=== PATIENT | male | born 2000 | race Caucasian/White ===

== ENCOUNTER 2021-01-31 21:07 | Emergency (ER) | payer OTHER, SELFPAY ==
[2021-01-31 21:21] VITALS: BP 155/82; PULSE 83; RESP 18; TEMP 37.2; O2SAT 98; BMI 29.7
--- NOTE | 2021-01-31 21:56 | ECG_ITS ---
Test Reason : PALPITATIONS Blood Pressure : / mmHG Vent. Rate : 083 BPM Atrial Rate : 083 BPM P-R Int : 114 ms QRS Dur : 102 ms QT Int : 350 ms P-R-T Axes : 068 081 057 degrees QTc Int : 411 ms Normal sinus rhythm Normal ECG No previous ECGs available Referred By: Danyell Ridley Electronically Signed By:Sekou Yarbrough
--- NOTE | 2021-01-31 22:15 | PC.NURSE ---
blood work was obtained and sent to the lab
[2021-01-31 22:16] VITALS: BP 118/68; PULSE 82; RESP 15; O2SAT 98
[2021-01-31 22:52] LABS: D Dimer < 200 NG/ML
--- NOTE | 2021-01-31 22:59 | ED_ITS ---
HPI - Arrhythmia/Palpitations General Chief Complaint: Arrhythmia/Palpitations Stated Complaint: arm tingling Time Seen by Provider: 01/31/21 21:55 Source: patient Mode of arrival: ambulatory History of Present Illness HPI narrative: 21-year-old male without significant past medical history who presents with 2nd episode of palpitations, 1st episode occurred approximately 2 weeks ago, and now this 2nd episode occurred after taking hot shower. These events have not been associated with fevers, chills, shortness of breath, chest pain, lightheadedness/dizziness, nausea, diaphoresis. Patient denies any recent travel, drinks only coffee, has not had COVID-19 vaccines. Patient denies any personal history cardiac problems and is noted to have played sports in high school. Related Data Allergies Allergy/AdvReac Type Severity Reaction Status Date / Time amoxicillin [AMOXICILLIN] Allergy Unknown HIVES, rash Verified 01/31/21 21:21 Review of Systems Review of Systems: Pertinent positives and negatives as stated in HPI 10 point review systems otherwise negative. [facility] Past Medical History Source: nursing notes reviewed Medical History Asthma COVID-19 Social History Social History Advance Directives: No Advance Directives Information Provided: No Physical Exam Vital Signs: Vital Signs: Last Vital Signs Temp 99.0 F 01/31/21 21:21 Pulse 82 01/31/21 22:16 Resp 15 01/31/21 22:16 BP 118/68 01/31/21 22:16 Pulse Ox 98 01/31/21 22:16 Body Mass Index 29.7 VITAL SIGNS: Reviewed. GENERAL: Well developed, well nourished, in no acute distress. HEAD: Normocephalic/atraumatic EYES: PERRLA, EOMI OROPHARYNX: no oral lesions noted, posterior pharynx clear NECK: Supple, no adenopathy LUNGS: Normal breath sounds. No adventitious sounds or accessory muscle use. SpO2<98> CARDIOVASCULAR: Regular rate and rhythm without noted murmurs ABDOMEN: Soft, non-tender, non-distended with bowel sounds. NEUROLOGIC: Alert and oriented x 4. Course Course Course Narrative: 21-year-old male with history and clinical presentation most consistent with likely benign palpitations but will evaluate for low clinical suspicion of PE, cardiac arrhythmia, thyroid condition. Review of all investigations negative for any acute findings. All results and findings were discussed with patient at bedside and he was discharged home in stable condition with instructions to follow-up with his primary care provider. MDM - Arrhythmia/Palpitations Lab Data Labs: Lab Results 01/31/21 01/31/21 01/31/21 Range/Units 22:13 22:13 23:37 D-Dimer < 200 NG/ML TSH 1.66 (0.32-4.0) uIU/mL Urine Opiates Screen Not Detected (Not Detect) Ur Barbiturates Screen Not Detected (Not Detect) Ur Phencyclidine Scrn Not Detected (Not Detect) Ur Amphetamines Screen Not Detected (Not Detect) U Benzodiazepines Scrn Not Detected (Not Detect) Urine Cocaine Screen Not Detected (Not Detect) U Marijuana (THC) Screen Not Detected (Not Detect) ECG Data Attestation: I personally reviewed and interpreted this ECG as follows: Prior ECG tracings: not available for review Interpretation: Normal sinus rhythm,-83, no evidence of acute ischemia, WA/QTC are within normal limits. Discharge Plan Discharge Clinical Impression: Palpitations Patient Disposition: Home, Self-Care Instructions: Heart Palpitations (ED) Additional Instructions: Follow-up with your primary care provider in the next 2-3 days for re- evaluation. Consider decreasing or stopping caffeinated products at this time. Do not hesitate to return to the emergency department should you experience any acute worsening of symptoms. Referrals: Deedee Thompson MD [Primary Care Provider] - 2 days
[2021-01-31 23:16] LABS: TSH reflex Free T4 1.66 uIU/mL (0.32-4.0)
[2021-02-01] VITALS: BP 115/65; PULSE 79; RESP 16; O2SAT 98
[2021-02-01] LABS: Amphetamine Screen Urine Not Detected (Not Detect); Barbiturates, Urine Not Detected (Not Detect); Benzodiazepines Screen Urine Not Detected (Not Detect); Cannabinoid Screen Urine Not Detected (Not Detect); Cocaine Screen Urine Not Detected (Not Detect); Opiate Screen Urine Not Detected (Not Detect); Phencyclidine Screen Urine Not Detected (Not Detect)
== END 2021-02-01 00:22 | disposition home or self-care (01) ==
PROVIDERS: Emergency Provider Student in an Organized Health Care Education/Training Program; PCP Pediatrics
DX: R00.2 Palpitations (principal); Z79.899 Other long term (current) drug therapy
CPT/HCPCS: 36415; 80307; 84443; 85379; 93005; 99284

== ENCOUNTER 2021-04-07 09:07 | Emergency (ER) | payer OTHER, SELFPAY ==
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
[2021-04-07 09:10] VITALS: BP 126/77; PULSE 84; RESP 14; TEMP 36.9; O2SAT 98; BMI 28.8
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
[2021-04-07] MEDS: Cyclobenzaprine HCl 10 MG TABLET PO (10:08)
[2021-04-07] MEDS: Ketorolac Tromethamine 15 MG/ML VIAL 30 MG IM (10:09)
== END 2021-04-07 11:09 | disposition home or self-care (01) ==
PROVIDERS: Emergency Provider Emergency Medicine; PCP Pediatrics
DX: S16.1XXA Strain of muscle, fascia and tendon at neck level, initial encounter (principal); M54.2 Cervicalgia; M79.602 Pain in left arm; G44.309 Post-traumatic headache, unspecified, not intractable; V43.52XA Car driver injured in collision with other type car in traffic accident, initial encounter; Y93.9 Activity, unspecified; Y92.410 Unspecified street and highway as the place of occurrence of the external cause; Y99.9 Unspecified external cause status; Z79.899 Other long term (current) drug therapy
CPT/HCPCS: 70450; 72125; 96372; 99283; 99284; J1885